=== PATIENT | female | born 2005 | race African-American/Black ===

== ENCOUNTER 2025-07-22 21:57 | Emergency (ER) | payer SELFPAY ==
[~2025-07-22] VITALS: Ht 152.4 cm; Wt 48.1 kg
[2025-07-22 23:16] LABS: PLATELET COUNT (AUTO) 265 K/uL (150-450); RED BLOOD CELL COUNT(AUTO) 4.25 MIL/uL (4.0-5.2); RED CELL DISTRIBUTION WIDTH 13.4 % (11.5-15.0); WHITE BLOOD COUNT (AUTO) 3.0 K/uL (4.3-11.0)
[2025-07-22 23:28] LABS: CALCIUM, SERUM 8.3 mg/dL (8.5-10.1); CREATININE 0.8 mg/dL (0.6-1.3); SODIUM SERUM 142.0 mmol/L (136-145); UREA NITROGEN, BLOOD 11.0 mg/dL (7-18)
[2025-07-22 23:30] LABS: INR 1.17 (0.91-1.10)
[2025-07-22 23:39] LABS: PREGNANCY TEST SERUM QUAN 1.0 mIU/mL (0-6)
[2025-07-23 01:14] VITALS: BP 120/68; TEMP 98.1; O2SAT 100
== END 2025-07-23 01:15 | disposition home or self-care (01) ==
LOC: ER 22:12
DX: N93.9 Abnormal uterine and vaginal bleeding, unspecified (principal); R53.1 Weakness; Z60.2 Problems related to living alone
CPT/HCPCS: 36415; 76856-TC; 80048-TC; 84702-TC; 85025-TC; 85730-TC